=== PATIENT | female | born 1940 | race Caucasian/White ===

== ENCOUNTER → 2017-04-10 | Outpatient (CLI) | payer MEDICARE, BC ==
[~2017-04-10] VITALS: Ht 152.4 cm; Wt 63.6 kg
[~2017-04-10] MED LIST: ALPR-236 PO; AMIT75TA37 PO; CLON0.5T62 PO; CRAN500C2 PO; CYAN500T37 PO; CYCL-208 PO; ESTROVEN; HYDR-969 PO; LEVO100T85 PO; MULT236L PO; OMEP-29 PO; POTA99TA9 PO; REGADENOSON 0.4mg/5ml INJECTION IV ONE; SALINE FLUSH 10ml SYRINGE ONE; VITA-239 PO; [UNRECOGNIZED DRUG - CODE] PO
--- NOTE | 2017-04-11 11:57 | ESTF ---
DATE OF SERVICE 04/10/2017 PROCEDURE Pharmacological stress nuclear scan. INDICATION R07.9 DESCRIPTION OF PROCEDURE The patient was injected with technetium-99m Myoview dose of 13.1 mCi at rest, Lexiscan dose of 0.4 mg with low-level exercise. I stopped the treadmill due to patient's inability to keep up with the treadmill. She was unable to do a full treadmill test due to COPD. The patient was injected with technetium-99m Myoview dose of 13.1 mCi, Lexiscan dose of 0.4 mg followed by technetium 99m Myoview dose of 32.5 mCi. The patient did experience some epigastric pressure of a mild degree without chest pain. Blood pressure was 146/84, pulse rate 52 beats per minute. Blood pressure anny to 177/74. Pulse rate anny to 85 bpm. Rest EKG showed sinus bradycardia 50 beats per minute, a nonspecific T-wave abnormality, mild degree, diffuse, especially seen in III, AVF, V4 through V6, sinus arrhythmia at rest. Occasional PVCs were present. During the stress test, there was no ST depression or elevation diagnostic of ischemia, nonspecific T-wave abnormality in III and AVF. Stress and rest perfusion images were reviewed. Unfortunately, the stress image quality was suboptimal due to a relatively low uptake and adjacent increased visceral uptake overlying the inferior wall, especially on rest images which has a higher uptake overall, whereas rotatogram does not suggest significant, large or dense breast tissue. SPECT images show a moderately reduced in the anterior wall of a moderate size and predominantly redistributes on rest images except some small areas in the anterior septum. These findings are consistent with moderate reversible ischemia in the anterior wall extending to the anterolateral wall as well of [id number] size. Uptake in the inferior wall, inferolateral and inferoseptal wall appear normal. Gated images show normal wall motion, normal contractility, normal LV ejection fraction, measures 57% on stress images, 58% on rest images. The rotatogram does not show any abnormal extracardiac update. IMPRESSION: 1. Inability to exercise on treadmill. 2. Pharmacological/low-level exercise stress nuclear scan, clinically and electrically negative. 3. Scintigraphically consistent with moderate reversible ischemia in the anterior/anterolateral wall of [id number] size defect. Further discussion regarding further management of the patient is warranted. 4. Normal LV ejection fraction as described above. We will contact the patient. MTDD
== END ==
LOC: IMA 08:20
PROVIDERS: ATTEND Internal Medicine Cardiovascular Disease
DX: R07.9 Chest pain, unspecified (principal); R55 Syncope and collapse
CPT/HCPCS: 78452; 93017; A9502; J2785